=== PATIENT | female | born 1985 | race African-American/Black ===

== ENCOUNTER 2017-05-07 09:39 | Emergency (ER) | payer SELFPAY ==
[~2017-05-07] VITALS: Ht 171.4 cm; Wt 73.5 kg
[2017-05-07 09:41] VITALS: BP 137/72; PULSE 101; RESP 15; TEMP 99.1; O2SAT 100
[2017-05-07] MEDS ORDERED: TRICTAB PO (09:57)
--- NOTE | 2017-05-07 10:18 | PD ---
HPI Chief Complaint: Related Problem Time Seen by Provider: 09:54 Travel History International Travel<30 days: No Contact w/Intl Traveler<30days: No Traveled to known affect area: No History of Present Illness HPI This is a 32-year-old female who is 7 weeks by dates who presents to the emergency department with some vaginal spotting that has been going on for 3 days associated with some lower abdominal cramping, constant, mild, worse on the right than on the left. She denies any dysuria but has white vaginal discharge and has had bacterial vaginosis in the past. Pt. is O positive blood type. PFSH Past Medical History Narrative Medical has had 2 miscarriages in the past and one full term ?: LMP: 03/18/17 Social History Tobacco Use: No Allergies-Medications (Allergen,Severity, Reaction): Coded Allergies: No Known Allergies (Unverified , 05/07/17) Reported Meds & Prescriptions Reported Meds & Active Scripts Active Reported ( Vit-Ferrous Fumarate) 27 Mg Iron-1 Mg Tab 1 Tab PO DAILY Review of Systems Except as stated in HPI: all other systems reviewed are Neg Physical Exam Narrative GENERAL:Well appearing, no acute distress SKIN: Focused skin assessment warm and dry. HEAD: Atraumatic. Normocephalic. EYES: Pupils equal and round. No injection or drainage. ENT: Moist mucous membranes NECK: Trachea midline. CARDIOVASCULAR: Regular rate and rhythm. No murmur appreciated. RESPIRATORY: Clear to auscultation. Breath sounds equal bilaterally. GASTROINTESTINAL: Abdomen soft, non-tender, nondistended. TESTER ARMATURE OR FIELDS: cervix is closed, scant white discharge in the vault. MUSCULOSKELETAL: No obvious deformities. NEUROLOGICAL: Awake and alert. No obvious cranial nerve deficits. Moving all extremities. PSYCHIATRIC: Appropriate mood and affect; insight and judgment normal. Data Data Last Documented VS Vital Signs Date Time Temp Pulse Resp B/P (MAP) Pulse Ox O2 Delivery O2 Flow Rate FiO2 05/07/17 09:41 99.1 101 15 137/72 (93) 100 Orders Orders Ed Poc Ultrasound (05/07/17 ) Wet Prep Profile (05/07/17 10:18) Gc And Chlamydia Pcr (05/07/17 10:18) Labs Laboratory Tests Test 05/07/17 10:25 Clue Cells (Wet Prep) PRESENT Vaginal Trichomonas (Wet Prep) NONE SEEN Vaginal Yeast (Wet Prep) NONE SEEN MDM Medical Decision Making Medical Screen Exam Complete: Yes Emergency Medical Condition: Yes Differential Diagnosis Threatened miscarriage, incomplete miscarriage, complete miscarriage, ectopic Narrative Course This is a 32-year-old female who presents to the emergency department with some vaginal spotting and lower abdominal cramping. [id number] ultrasound demonstrates an intrauterine with a normal heartbeat. Cervix is closed on exam. Pt. has evidence of bacterial vaginosis on exam and wet prep. She will be treated with flagyl. She was counselled regarding threatened miscarraige. Blood type was confirmed from prior visit and pt is Rh +. Diagnosis Primary Impression: Threatened miscarriage Additional Impression: Bacterial vaginosis Patient Instructions: General Instructions Additional Instructions: If you develop severe or worsening abdominal pain, fever>100.4, persistent vomiting or inability to eat or drink return to the emergency department immediately. Follow up with your primary care physician in 1-2 days for a check-up. Med/Other Pt SpecificInfo: Prescription(s) given Scripts Metronidazole (Flagyl) 500 Mg Tab 500 MG PO BID for Infection for 7 Days, #14 TAB 0 Refills Prov: Italia Elias MD 05/07/17 Disposition: 01 DISCHARGE HOME Condition: Stable Italia Elias MD May 07, 2017 10:18
[2017-05-07] MEDS ORDERED: METR-1 PO (11:03)
[2017-05-07 11:17] VITALS: BP 108/80
== END 2017-05-07 11:18 | disposition home or self-care (01) ==
LOC: NEPD 09:39
DX: O20.0 Threatened abortion (principal); O23.591 Infection of other part of genital tract in pregnancy, first trimester; N76.0 Acute vaginitis; Z3A.01 Less than 8 weeks gestation of pregnancy
CPT/HCPCS: 87210; 87491; 87591; 99283

== ENCOUNTER 2018-05-24 13:54 | Observation (INO) ==
[2018-05-24] MEDS ORDERED: Sod Chloride 0.9% Inj 1,000 ML IV.SIG SCH (15:00)
--- NOTE | 2018-05-24 15:14 | ED ---
History of Present Illness Primary Care Physician: No Primary Care Physician Chief Complaint: weakness, headache, nausea History of Present Illness: 33 year old at 35 weeks and 1 day presents with headache, weakness, and nausea. Her symptoms started Thursday. This morning she also noted decreased movement from 11- but states since being placed on the monitor she is feeling baby moving frequently. She has been having [place] barrios contractions for the past week. She denies any loss of fluid or vaginal bleeding. She denies any upper quadrant abdominal pain, edema, or change in vision. She denies any leg pain or chest pain. She took her BP this morning at home and it was 134/ 101. She called her physician at [facility] and they told her to come to the OB emergency for evaluation of her blood pressure. She has been taking Tylenol for her headache yesterday and today every 6 hours. She drinks 5-6 bottles of water a day and eating 3 meals with snacks in between. For this she was diagnosed with a incompetent cervix at 16 weeks and a cerclage was placed. She was placed on bed rest since 19 weeks. She is taking progesterone daily as well as probiotics and vitamins. Her first was full term with no complications. Her second was a miscarriage at 9 weeks. Her third was delivered at 21 weeks and 2 hours after delivery. PMH: denies SH: D and C allergies: none Social: Denies any tobacco, drug, or alcohol use. Denies any STDs. Weeks Gestation:: 35 Para: 4 : 2 Total # of Miscarriage(s): 1 Review of Systems Constitutional: Reports fatigue, Reports headache(s), Reports lack of energy, Reports weakness, Denies chills, Denies fever(s), Denies increased appetite Eyes: Denies change in vision Ears, Nose, Mouth, and Throat: Denies sore throat Cardiovascular: Denies chest pain, Denies shortness of breath causing sudden awakening Respiratory: Denies cough Gastrointestinal: Reports nausea, Denies abdominal pain, Denies change in stools , Denies vomiting Genitourinary: Denies painful urination, Denies vaginal discharge Musculoskeletal: Denies body aches Skin/Breast: Denies rash Neurologic: Reports headache(s) Endocrine: Denies flushing Hematologic/Lymphatic: Denies easy bleeding Allergic/Immunologic: Denies hives PMFSH - History History Provided By: Patient - Medical History Medical History: Medical History (Last Reviewed 04/08/18 @ 16:18 by Jolanta Shrestha DO) Cervical cerclage suture present in second trimester Patient denies medical problems - Surgical History Surgical History: Surgical History (Last Reviewed 04/08/18 @ 16:18 by Jolanta Shrestha DO) History of D&C - Tobacco History Second Hand Smoke Exposure: No Smoking Status: Never smoker - Alcohol History How Often Do You Have a Drink Containing Alcohol: Monthly or less (when not ) - Substance Use History Substance History: No History of Abuse - Travel History History of Recent Travel: No Recent Travel in the [place] Within the Last 8 Weeks: No Recent Travel Out of the Country Within the Last 8 Weeks: No Medications and Allergies Allergies Allergy/AdvReac Type Severity Reaction Status Date / Time No Known Allergies Allergy Verified 05/24/18 14:34 Home Medications Medication Instructions Recorded Confirmed Type PNV cmb#95-ferrous fumarate-FA 1 tab PO DAILY 01/13/18 02/11/18 History [] Ca carb-Ca gluc-Mg ox-Mg gluco 2 tab PO DAILY 02/01/18 02/11/18 History [Calcium Magnesium] Lactobac 41-B.bifid,lactis-FOS 4 cap PO DAILY 02/01/18 02/11/18 History [Ultimate Probiotic-10] progesterone micronized 1 PO DAILY 04/08/18 History Active Medications: Active Medications Sodium Chloride (Ns Inj) 1,000 mls @ 1,000 mls/hr IV.SIG BOLUS NAV Stop: 05/24/18 15:59 Exam Vital signs: Vital Signs 05/24/18 14:28 05/24/18 14:54 05/24/18 14:55 Temperature 98.9 F Pulse Rate 129 H 124 H 119 H Respiratory Rate 18 18 Blood Pressure 129/81 108/80 Intake & Output 05/23/18 05/24/18 05/24/18 18:59 06:59 18:59 Weight 95 kg Narrative: GENERAL: Well-nourished, well-developed patient. SKIN: Warm and dry. HEAD: Normocephalic and atraumatic. EYES: No scleral icterus. No injection or drainage. ENT: No nasal drainage noted. Mucous membranes pink. Airway patent. NECK: Supple, trachea midline. No JVD. CARDIOVASCULAR: Regular rate and rhythm without murmurs, gallops, or rubs. RESPIRATORY: Breath sounds equal bilaterally. No accessory muscle use. ABDOMEN/GI: Abdomen soft, non-tender, bowel sounds present, no rebound, no guarding GENITOURINARY: Cervix: posterior Dilatation:closed Membranes: intact Uterine Contractions: 5 min apart FHT's: Category: 2 due to tachycardia Baseline: 165 Reactive: yes Variability: moderate Decels:none +Accels EXTREMITIES: No cyanosis or edema. BACK: Nontender without obvious deformity. No CVA tenderness. NEUROLOGICAL: Awake and alert. Motor and sensory grossly within normal limits. Five out of 5 muscle strength in all muscle groups. Normal speech. Results - Labs CBC & Chem 7: 05/24/18 15:15 05/24/18 15:15 Labs: protein/cr ratio 0.34 Assessment and Plan - Diagnosis (1) Headache Code(s): R51 - Headache Status: Acute (2) Weakness Code(s): R53.1 - Weakness Status: Acute (3) Nausea Code(s): R11.0 - Nausea Status: Acute - Plan 33 year old at 35 weeks and 1 day presents with headache, weakness, and nausea. Complicated with cervical insufficiency diagnosed at 16 weeks with cerclage placement and bedrest at 19 weeks. VS notable for tachycardia of mom 130s. FHT category 2 with tachycardia 165 baseline. Cervical exam posterior and closed. Contractions 5 minutes apart. 1) Headache ddx pre-eclampsia vs dehydration; at home BP 134/101 in triage 129/ 81 -1 L NS bolus -Labs: CBC CMP protein/creatine uric acid -UA: initial dip negative protein positive for elevated glucose. UA negative for protein but Random Urine protein 15.6 and protien/Cr 0.34 -CMP AST and ALT wnl AP elevated 666; CBC wnl -Admit for completion of 24 hr urine protein and observation. AM labs of CBC CMP and uric acid. 2) Tachycardia ddx pain or dehydration -1 L NS bolus once -Vistaril 50 mg q 4 PRN 3) tachycardia -see plan above -Continuous monitoring 3) cervical insufficiency with cerclage placement -continue progesterone and bedrest per patient's OB physician Patient discussed and seen with Dr. Shrestha - Attending Attestation The exam, history, and the medical decision-making described in the above note were completed with the assistance of the resident physician. I reviewed and agree with the findings presented. I attest that I had a [id number] encounter with the patient on the same day, and personally performed and documented my assessment and findings in the medical record. Pt seen and examined. FHTs now Cat 1, 140s reactive. Ctxs resolved with IV fluids and Vistaril. Prot/cr ratio 0.34. Will place pt in as 23 hr obsv to complete 24 hr urine prot/cr. Headache has also resolved. Discharge Plan - Physicians Team Primary Care Provider: Primary Care Eliz Borden Attending Provider: Jolanta Shrestha - Rxs /Orders / Referrals /Forms Prescriptions: No Action Ca carb-Ca gluc-Mg ox-Mg gluco [Calcium Magnesium] 500 mg calcium -250 mg Tablet 2 tab PO DAILY hydroxyzine pamoate [Vistaril] 50 mg Capsule 50 mg PO Q8HR PRN (Reason: Cramps) Qty: 10 RF: 0 Lactobac 41-B.bifid,lactis-FOS [Ultimate Probiotic-10] 111 mg (25 billion cell) Capsule 4 cap PO DAILY PNV cmb#95-ferrous fumarate-FA [] 28 mg iron- 800 mcg Tablet 1 tab PO DAILY progesterone micronized 200 mg Capsule 1 PO DAILY - Discharge Instructions
[2018-05-24 15:41] LABS: Hematocrit 37.3 % (35.0-46.0); Hemoglobin 12.1 gm/dL (11.6-15.3); Mean Corpuscular HGB Conc 32.5 % (32.0-36.0); Mean Corpuscular Hemoglobin 26.5 pg (27.0-34.0); Mean Corpuscular Volume 81.5 fL (80.0-100.0); Mean Platelet Volume 7.3 fL (7.0-11.0); Platelet Count 288 th/mm3 (150-450); Red Blood Count 4.58 mil/mm3 (4.00-5.30); Red Cell Distribution Width 15.8 % (11.6-17.2); White Blood Count 6.6 th/mm3 (4.0-11.0)
[2018-05-24 15:48] LABS: Bacteria,Urine Rare /hpf; Bilirubin,Urine Negative (Negative); Clarity,Urine Clear (Clear); Color,Urine Yellow (Yellw/Straw); Glucose,Urine (UA) 150 mg/dL (Negative); Hyaline Casts,Urine 1 /lpf (0-3); Leukocyte Esterase,Urine Negative (Negative); Nitrite,Urine Negative (Negative); Specific Gravity,Urine 1.009 (1.002-1.035); Squamous Epithelial Cell,Urine 4 /hpf (0-5)
[2018-05-24 15:58] LABS: Total Protein,Urine Random 15.6 mg/dL (0-11.8)
[2018-05-24 16:01] LABS: Protein/Creatinine Ratio,Urine 0.34 (0.00-0.14)
[2018-05-24 16:02] LABS: Albumin 2.5 g/dL (3.4-5.0); Anion Gap 9 meq/L (5-15); Aspartate Aminotransferase 21 U/L (15-37); Blood Urea Nitrogen 6 mg/dL (7-18); Calcium 9.6 mg/dL (8.5-10.1); Carbon Dioxide 23.2 meq/L (21.0-32.0); Chloride 104 meq/L (98-107); Glomerular Filtration Rate Greater Than 89 mL/min (>89); Glucose,Random 115 mg/dL (74-106); Potassium 4.1 meq/L (3.5-5.1); Sodium 136 meq/L (136-145)
[2018-05-24 16:06] LABS: Alanine Aminotransferase 18 U/L (10-53); Alkaline Phosphatase 666 U/L (45-117); Total Protein 7.1 g/dL (6.4-8.2); Uric Acid 3.7 mg/dl (2.6-6.0)
--- NOTE | 2018-05-24 16:22 | P.HPOB ---
History of Present Illness Primary Care Physician: No Primary Care Physician Chief Complaint: weakness, headache, nausea History of Present Illness: 33 year old at 35 weeks and 1 day presents with headache, weakness, and nausea. Her symptoms started Thursday. This morning she also noted decreased movement from 11- but states since being placed on the monitor she is feeling baby moving frequently. She has been having [place] barrios contractions for the past week. She denies any loss of fluid or vaginal bleeding. She denies any upper quadrant abdominal pain, edema, or change in vision. She has some shortness of breath with the barrios contractions. She denies any leg pain or chest pain.She took her BP this morning at home and it was 134/101. She called her physician at [facility] and they told her to come to the emergency for evaluation for blood pressure. She has been taking Tylenol for her headache yesterday and today every 6 hours. She drinks 5-6 bottles of water a day and eating 3 meals with snacks in between. For this she was diagnosed with a incompetent cervix at 16 weeks and a cerclage was placed. She was placed on bed rest since 19 weeks. She is taking progesterone daily as well as probiotics and vitamins. Her first was full term with no complications. Her second was a miscarriage at 9 weeks. Her third was delivered at 21 weeks and 2 hours after delivery. PMH: denies SH: D and C allergies: none Social: Denies any tobacco, drug, or alcohol use. Denies any STDs. Weeks Gestation:: 35 Para: 4 : 2 Total # of Miscarriage(s): 1 Review of Systems Constitutional: Reports fatigue, Reports headache(s), Reports lack of energy, Reports weakness, Denies chills, Denies fever(s), Denies increased appetite Eyes: Denies change in vision Ears, Nose, Mouth, and Throat: Denies sore throat Cardiovascular: Denies chest pain, Denies shortness of breath causing sudden awakening Respiratory: Denies cough Gastrointestinal: Reports nausea, Denies abdominal pain, Denies change in stools , Denies vomiting Genitourinary: Denies painful urination, Denies vaginal discharge Musculoskeletal: Denies body aches Skin/Breast: Denies rash Neurologic: Reports headache(s) Endocrine: Denies flushing Hematologic/Lymphatic: Denies easy bleeding Allergic/Immunologic: Denies hives PMFSH - History History Provided By: Patient - Medical History Medical History: Medical History (Last Reviewed 04/08/18 @ 16:18 by Jolanta Shrestha DO) Cervical cerclage suture present in second trimester Patient denies medical problems - Surgical History Surgical History: Surgical History (Last Reviewed 04/08/18 @ 16:18 by Jolanta Shrestha DO) History of D&C - Tobacco History Second Hand Smoke Exposure: No Smoking Status: Never smoker - Alcohol History How Often Do You Have a Drink Containing Alcohol: Monthly or less (when not ) - Substance Use History Substance History: No History of Abuse - Travel History History of Recent Travel: No Recent Travel in the [place] Within the Last 8 Weeks: No Recent Travel Out of the Country Within the Last 8 Weeks: No Medications and Allergies Active Medications: Active Medications Sodium Chloride (Ns Inj) 1,000 mls @ 1,000 mls/hr IV.SIG BOLUS NAV Stop: 05/24/18 15:59 Allergies Allergy/AdvReac Type Severity Reaction Status Date / Time No Known Allergies Allergy Verified 05/24/18 14:34 Home Medications Medication Instructions Recorded Confirmed Type PNV cmb#95-ferrous fumarate-FA 1 tab PO DAILY 01/13/18 02/11/18 History [] Ca carb-Ca gluc-Mg ox-Mg gluco 2 tab PO DAILY 02/01/18 02/11/18 History [Calcium Magnesium] Lactobac 41-B.bifid,lactis-FOS 4 cap PO DAILY 02/01/18 02/11/18 History [Ultimate Probiotic-10] progesterone micronized 1 PO DAILY 04/08/18 History Exam Vital signs: Vital Signs 05/24/18 14:28 05/24/18 14:54 05/24/18 14:55 Temperature 98.9 F Pulse Rate 129 H 124 H 119 H Respiratory Rate 18 18 Blood Pressure 129/81 108/80 Intake & Output 05/23/18 05/24/18 05/24/18 18:59 06:59 18:59 Weight 95 kg Narrative: GENERAL: Well-nourished, well-developed patient. SKIN: Warm and dry. HEAD: Normocephalic and atraumatic. EYES: No scleral icterus. No injection or drainage. ENT: No nasal drainage noted. Mucous membranes pink. Airway patent. NECK: Supple, trachea midline. No JVD. CARDIOVASCULAR: Regular rate and rhythm without murmurs, gallops, or rubs. RESPIRATORY: Breath sounds equal bilaterally. No accessory muscle use. BREASTS: Bilateral exam showed no masses , no retractions, no nipple discharge. ABDOMEN/GI: Abdomen soft, non-tender, bowel sounds present, no rebound, no guarding GENITOURINARY: Cervix: posterior Dilatation:closed Membranes: intact Uterine Contractions: none FHT's: Category: 1 Baseline: 140 Reactive: yes Variability: moderate Decels:none +accels EXTREMITIES: No cyanosis or edema. BACK: Nontender without obvious deformity. No CVA tenderness. NEUROLOGICAL: Awake and alert. Motor and sensory grossly within normal limits. Five out of 5 muscle strength in all muscle groups. Normal speech. Results - Labs CBC & Chem 7: 05/24/18 15:15 05/24/18 15:15 Assessment and Plan - Diagnosis (1) Headache Code(s): R51 - Headache Status: Acute (2) Weakness Code(s): R53.1 - Weakness Status: Acute (3) Nausea Code(s): R11.0 - Nausea Status: Acute (4) Cervical insufficiency during in second trimester, antepartum Code(s): O34.32 - Maternal care for cervical incompetence, second trimester Status: Acute - Plan 33 year old at 35 weeks and 1 day presents with headache, weakness, and nausea. Complicated with cervical insufficiency diagnosed at 16 weeks with cerclage placement and bedrest at 19 weeks. VS notable for tachycardia of mom 130s. FHT category 2 with tachycardia 165 baseline. Cervical exam posterior and closed. Contractions 5 minutes apart. 1) Headache ddx pre-eclampsia vs dehydration; at home BP 134/101 in triage 129/ 81 -1 L NS bolus -Labs: CBC CMP protein/creatine uric acid -UA: initial dip negative protein positive for elevated glucose. UA negative for protein but Random Urine protein 15.6 and protien/Cr 0.34 -CMP AST and ALT wnl AP elevated 666; CBC wnl -Admit for observation and completion of 24 hr urine protein and creatine. AM labs of CBC, CMP, and uric acid. -Vitals q 4hrs 2) Tachycardia ddx pain or dehydration -1 L NS bolus once -Vistaril 50 mg q 4 PRN 3) tachycardia -see plan above -Continuous monitoring 3) cervical insufficiency with cerclage placement -continue progesterone and bedrest per patient's OB physician orders Patient discussed and seen with Dr. Shrestha Discharge Plan - Discharge Disposition Patient Disposition: ED Admit(ED Internal Use Only) - Discharge Condition Condition: Stable - Physicians Team ED Provider: Jolanta Shrestha Primary Care Provider: Primary Care Physici,No - Rxs /Orders / Referrals /Forms Prescriptions: No Action Ca carb-Ca gluc-Mg ox-Mg gluco [Calcium Magnesium] 500 mg calcium -250 mg Tablet 2 tab PO DAILY hydroxyzine pamoate [Vistaril] 50 mg Capsule 50 mg PO Q8HR PRN (Reason: Cramps) Qty: 10 RF: 0 Lactobac 41-B.bifid,lactis-FOS [Ultimate Probiotic-10] 111 mg (25 billion cell) Capsule 4 cap PO DAILY PNV cmb#95-ferrous fumarate-FA [] 28 mg iron- 800 mcg Tablet 1 tab PO DAILY progesterone micronized 200 mg Capsule 1 PO DAILY - Discharge Instructions Print Language: Irish - Attending Attestation The exam, history, and the medical decision-making described in the above note were completed with the assistance of the resident physician. I reviewed and agree with the findings presented. I attest that I had a [id number] encounter with the patient on the same day, and personally performed and documented my assessment and findings in the medical record. Pt seen and examined. FHTs now Cat 1, 140s reactive. Ctxs resolved with IV fluids and Vistaril. Prot/cr ratio 0.34. Will place pt in as 23 hr obsv to complete 24 hr urine prot/cr. Headache has also resolved.
[2018-05-25 04:31] LABS: Baso % (Auto) 0.3 % (0.0-2.0); Eos # (Auto) 0.1 th/mm3 (0.0-0.4); Eos % (Auto) 1.5 % (0.0-4.0); Hematocrit 32.3 % (35.0-46.0); Hemoglobin 10.8 gm/dL (11.6-15.3); Lymph # (Auto) 1.6 th/mm3 (1.0-4.8); Lymph % (Auto) 26.2 % (9.0-44.0); Mean Corpuscular HGB Conc 33.4 % (32.0-36.0); Mean Corpuscular Hemoglobin 27.4 pg (27.0-34.0); Mean Corpuscular Volume 82.1 fL (80.0-100.0); Mean Platelet Volume 7.2 fL (7.0-11.0); Mono # (Auto) 0.8 th/mm3 (0.0-0.9); Mono % (Auto) 12.4 % (0.0-8.0); Neut # (Auto) 3.6 th/mm3 (1.8-7.7); Neut % (Auto) 59.6 % (16.0-70.0); Platelet Count 265 th/mm3 (150-450); Red Blood Count 3.94 mil/mm3 (4.00-5.30); Red Cell Distribution Width 15.6 % (11.6-17.2); White Blood Count 6.1 th/mm3 (4.0-11.0)
[2018-05-25 04:57] LABS: Alanine Aminotransferase 14 U/L (10-53); Albumin 2.1 g/dL (3.4-5.0); Anion Gap 8 meq/L (5-15); Aspartate Aminotransferase 16 U/L (15-37); Blood Urea Nitrogen 6 mg/dL (7-18); Calcium 8.9 mg/dL (8.5-10.1); Carbon Dioxide 23.8 meq/L (21.0-32.0); Chloride 107 meq/L (98-107); Glomerular Filtration Rate Greater Than 89 mL/min (>89); Glucose,Random 118 mg/dL (74-106); Potassium 3.7 meq/L (3.5-5.1); Sodium 139 meq/L (136-145); Uric Acid 3.9 mg/dl (2.6-6.0)
[2018-05-25 04:59] LABS: Alkaline Phosphatase 555 U/L (45-117); Total Protein 5.9 g/dL (6.4-8.2)
--- NOTE | 2018-05-25 07:43 | P.OBANTE ---
Subjective Interval History: Pt doing well. Headache resolved. No new complaints. Antepartum ROS: Reports: movement normal Denies: New complaints Objective Vital Signs and I&O: Vital Signs 05/24/18 14:28 05/24/18 14:54 05/24/18 14:55 Temperature 98.9 F Pulse Rate 129 H 124 H 119 H Respiratory Rate 18 18 Blood Pressure 129/81 108/80 05/24/18 15:40 05/24/18 16:25 05/24/18 16:35 Temperature Pulse Rate 120 H 112 H 110 H Respiratory Rate Blood Pressure 05/24/18 16:45 05/24/18 18:38 05/24/18 20:10 Temperature 98.3 F Pulse Rate 113 H 127 H 126 H Respiratory Rate 18 16 Blood Pressure 122/78 122/71 05/24/18 21:44 05/25/18 01:53 05/25/18 02:37 Temperature 98.8 F 99.2 F Pulse Rate 123 H 113 H Respiratory Rate Blood Pressure 108/53 L 120/65 05/25/18 02:40 05/25/18 06:00 05/25/18 07:35 Temperature 98.6 F 97.8 F Pulse Rate 107 H 113 H Respiratory Rate 16 16 18 Blood Pressure 107/67 124/67 05/25/18 07:37 Temperature 98.7 F Pulse Rate Respiratory Rate Blood Pressure Intake & Output 05/24/18 05/25/18 05/25/18 18:59 06:59 18:59 Weight 95 kg Lab and Micro Results: Laboratory Results - last 24 hr 05/24/18 05/24/18 05/24/18 14:45 14:45 15:15 WBC 6.6 RBC 4.58 Hgb 12.1 Hct 37.3 MCV 81.5 MCH 26.5 L MCHC 32.5 RDW 15.8 Plt Count 288 MPV 7.3 Neut % (Auto) Lymph % (Auto) Saunders % (Auto) Eos % (Auto) Baso % (Auto) Neut # (Auto) Lymph # (Auto) Saunders # (Auto) Eos # (Auto) Baso # (Auto) WBC Differential Differential Comment Sodium Potassium Chloride Carbon Dioxide Anion Gap BUN Creatinine Estimated GFR Random Glucose Uric Acid Calcium Total Bilirubin AST ALT Alkaline Phosphatase Total Protein Albumin Urine Color Yellow Urine Clarity Clear Urine pH 6.0 Ur Specific [place] 1.009 Urine Protein Negative Urine Glucose (UA) 150 H Urine Ketones Negative Urine Occult Blood Negative Urine Nitrate Negative Urine Bilirubin Negative Urine Urobilinogen Less than 2 Ur Leukocyte Esterase Negative Urine RBC Less than 1 Urine WBC 1 Ur Squamous Epith Cells 4 Urine Bacteria Rare H Hyaline Casts 1 Micro UA Comment Culture not ind Ur Microscopic Review Not Reportable Urine Culture Comments Culture not ind Ur Random Creatinine 46 U Random Total Protein 15.6 H Protein/Creatinin Ratio 0.34 H Blood Type Antibody Screen 05/24/18 05/24/18 05/25/18 15:15 17:00 04:15 WBC 6.1 RBC 3.94 L Hgb 10.8 L Hct 32.3 L MCV 82.1 MCH 27.4 MCHC 33.4 RDW 15.6 Plt Count 265 MPV 7.2 Neut % (Auto) 59.6 Lymph % (Auto) 26.2 Saunders % (Auto) 12.4 H Eos % (Auto) 1.5 Baso % (Auto) 0.3 Neut # (Auto) 3.6 Lymph # (Auto) 1.6 Saunders # (Auto) 0.8 Eos # (Auto) 0.1 Baso # (Auto) 0.0 WBC Differential . Differential Comment Auto diff final Sodium 136 Potassium 4.1 Chloride 104 Carbon Dioxide 23.2 Anion Gap 9 BUN 6 L Creatinine 0.51 Estimated GFR Greater than 89 Random Glucose 115 H Uric Acid 3.7 Calcium 9.6 Total Bilirubin 0.2 AST 21 ALT 18 Alkaline Phosphatase 666 H Total Protein 7.1 Albumin 2.5 L Urine Color Urine Clarity Urine pH Ur Specific [place] Urine Protein Urine Glucose (UA) Urine Ketones Urine Occult Blood Urine Nitrate Urine Bilirubin Urine Urobilinogen Ur Leukocyte Esterase Urine RBC Urine WBC Ur Squamous Epith Cells Urine Bacteria Hyaline Casts Micro UA Comment Ur Microscopic Review Urine Culture Comments Ur Random Creatinine U Random Total Protein Protein/Creatinin Ratio Blood Type O Positive Antibody Screen Negative 05/25/18 04:15 WBC RBC Hgb Hct MCV MCH MCHC RDW Plt Count MPV Neut % (Auto) Lymph % (Auto) Saunders % (Auto) Eos % (Auto) Baso % (Auto) Neut # (Auto) Lymph # (Auto) Saunders # (Auto) Eos # (Auto) Baso # (Auto) WBC Differential Differential Comment Sodium 139 Potassium 3.7 Chloride 107 Carbon Dioxide 23.8 Anion Gap 8 BUN 6 L Creatinine 0.48 L Estimated GFR Greater than 89 Random Glucose 118 H Uric Acid 3.9 Calcium 8.9 Total Bilirubin 0.3 AST 16 ALT 14 Alkaline Phosphatase 555 H Total Protein 5.9 L D Albumin 2.1 L Urine Color Urine Clarity Urine pH Ur Specific [place] Urine Protein Urine Glucose (UA) Urine Ketones Urine Occult Blood Urine Nitrate Urine Bilirubin Urine Urobilinogen Ur Leukocyte Esterase Urine RBC Urine WBC Ur Squamous Epith Cells Urine Bacteria Hyaline Casts Micro UA Comment Ur Microscopic Review Urine Culture Comments Ur Random Creatinine U Random Total Protein Protein/Creatinin Ratio Blood Type Antibody Screen Physical Exam: GENERAL: Well-nourished, well-developed patient. CARDIOVASCULAR: Regular rate and rhythm without murmurs, gallops, or rubs. RESPIRATORY: Breath sounds equal bilaterally. No accessory muscle use. ABDOMEN/GI: Abdomen soft, non-tender. Fundus: [-] GENITOURINARY: External Genitalia: intact and normal in appearance Cervix: [-] Dilatation: [-] Effacement: [-] Station: [-] Presentation: [-] Membranes: [-] Uterine Contractions: [-] FHT's: Category: [-] Baseline: [-] Reactive: [-] Variability: [-] Decels: [-] EXTREMITIES: No cyanosis or edema, non-tender, without signs of DVT. Assessment and Plan - Diagnosis (1) Headache Code(s): R51 - Headache Status: Acute (2) Weakness Code(s): R53.1 - Weakness Status: Acute (3) Nausea Code(s): R11.0 - Nausea Status: Acute (4) Decreased movement during in third trimester, antepartum Code(s): O36.8130 - Decreased movements, third trimester, not applicable or unspecified Status: Acute Plan: NST reactive - Plan Will send 24 hr urine at 2:45 PM. Will most likely be able to go home once result is back. (4) Decreased movement during in third trimester, antepartum Qualifiers: Fetus number: single or unspecified fetus Qualified Code(s): O36.8130 - Decreased movements, third trimester, not applicable or unspecified
[2018-05-25] MEDS ORDERED: PROGESTERONE MICRONIZED 200 MG PO SCH (09:00)
[2018-05-25 12:30] VITALS: TEMP 98.3
[2018-05-25 12:31] VITALS: RESP 14
[2018-05-25 15:01] VITALS: BP 133/72; PULSE 125
[2018-05-25 16:35] LABS: Creatinine 24 Hour,Urine 1.52 gm/24hr (0.63-2.50)
--- NOTE | 2018-05-26 09:26 | P.PNADD ---
Addendum to Inpatient Note Reason for Addendum: Additional Documentation Additional information: Patient 24 hour urine was 386. Patient was told to follow up with her OB provider for BP check and NST evaluation. Patient discussed with Dr. Hallman.
== END 2018-05-25 15:46 | disposition home or self-care (01) ==
LOC: H2E 13:54 → HOBED 13:54 → H2E 17:49
PROVIDERS: ADMIT Obstetrics & Gynecology; ATTEND Obstetrics & Gynecology
DX: R11.0 Nausea; R53.1 Weakness; R51 Headache; Z3A.35 35 weeks gestation of pregnancy; O34.33 Maternal care for cervical incompetence, third trimester; O36.8130 Decreased fetal movements, third trimester, not applicable or unspecified; O26.893 Other specified pregnancy related conditions, third trimester
CPT/HCPCS: 59025; 80053; 81001; 82570; 84155; 84156; 84157; 84550; 85025; 85027; 86850; 86900; 86901; 99285; G0378; J7120